=== PATIENT | female | born 1970 | race American Indian/Alaskan Native ===

== ENCOUNTER 2016-09-05 16:01 | Emergency (ER) | payer OTHER, BC ==
[2016-09-05 16:18] VITALS: BP 131/75; PULSE 72; RESP 20; TEMP 98.4; O2SAT 98
--- NOTE | 2016-09-05 16:44 | C.PDOC ---
History Of Present Illness 46 y.o female brought in by EMS for evaluation of head injury. Patient reports she was [employer] when a box full of metal poles tipped over and struck her left side of the head and left shoulder. She reports feeling dizzy, ringing to left ear and headache after box struck her head. She also reports feeling pain to left shoulder and tingling sensation. Denies LOC, extremity weakness, numbness, visual changes, nausea, vomiting. Time Seen by Provider: 09/05/16 16:13 Chief Complaint (Nursing): Headache History Per: Patient History/Exam Limitations: no limitations Onset/Duration Of Symptoms: Mins (just prior to arrival) Patient States: Struck With Object Severity: Mild Pain Scale Rating Of: 3 Loss Of Consciousness: No Recent travel outside of the [place]: No Past Medical History Reviewed: Historical Data, Nursing Documentation, Vital Signs Vital Signs: Last Vital Signs Temp 98.4 F 09/05/16 16:15 Pulse 72 09/05/16 16:15 Resp 20 09/05/16 16:15 BP 131/75 09/05/16 16:15 Pulse Ox 98 09/05/16 18:55 - Medical History PMH: No Chronic Diseases Surgical History: Family History: States: Unknown Family Hx - Social History Hx Alcohol Use: No Hx Substance Use: No - Immunization History Hx Tetanus Toxoid Vaccination: No Hx Influenza Vaccination: No Hx Pneumococcal Vaccination: No Review Of Systems Except As Marked, All Systems Reviewed And Found Negative. Constitutional: Positive for: Other (head injury) Eyes: Negative for: Vision Change ENT: Positive for: Other (ringing sensation in the left ear) Gastrointestinal: Negative for: Nausea, Vomiting Musculoskeletal: Positive for: Shoulder Pain (left) Neurological: Positive for: Headache, Dizziness. Negative for: Weakness, Numbness, Other (loss of consciousness) Physical Exam - Physical Exam Appears: Non-toxic, No Acute Distress Skin: Warm, Dry Head: Normacephalic, No Tenderness, No Swelling, No Abrasion, No Laceration, Other ((-) palpable hematoma, (-)scalp laceration or abrasion (-)facial hematoma ) Eye(s): bilateral: Normal Inspection, EOMI Ear(s): Bilateral: Normal Nose: Normal Oral Mucosa: Moist Throat: Normal Neck: Normal ROM, Supple Chest: Symmetrical Cardiovascular: Rhythm Regular Respiratory: Normal Breath Sounds, No Rales, No Rhonchi, No Wheezing Back: Normal Inspection, No CVA Tenderness Extremity: Normal ROM, Capillary Refill, No Deformity, No Swelling, Other (left shoulder tenderness to the anterior area with normal ROM and normal strength) Neurological/Psych: Oriented x3, Normal Speech Gait: Steady ED Course And Treatment O2 Sat by Pulse Oximetry: 98 (room air) Pulse Ox Interpretation: Normal - CT Scan/US head Other Rad Studies (CT/US): Read By Radiologist, Radiology Report Reviewed CT/US Interpretation: Creator : Lance Contreras MD. Dictator : Lance Contreras MD. Dust Operator : Organ Assembler : Lance Contreras MD. Approver2 : Report Date : 09/05/2016 17:35:06. My Comment : . PROCEDURE: CT HEAD WITHOUT CONTRAST. HISTORY: left side headache s.p injury, struck by object. COMPARISON: None available. TECHNIQUE: Axial computed tomography images were obtained through the head/brain without intravenous contrast. Radiation dose: Total exam DLP = 913 mGy-cm. This CT exam was performed using one or more of the following dose reduction techniques: Automated exposure control, adjustment of the mA and/or kV according to patient size, and/or use of iterative reconstruction technique. FINDINGS: HEMORRHAGE: No intracranial hemorrhage. BRAIN: No mass effect or edema. No atrophy or chronic microvascular ischemic changes. VENTRICLES: Unremarkable. No hydrocephalus. CALVARIUM: Unremarkable. PARANASAL SINUSES: Unremarkable as visualized. No significant inflammatory changes. MASTOID AIR CELLS: Unremarkable as visualized. No inflammatory changes. OTHER FINDINGS: None. IMPRESSION: Normal CT of the Head. Medical Decision Making Medical Decision Making: Impression: 46 y.o female with head injury. Normal neurological exam. Plan: * Head CT * Shoulder xray * Ibuprofen, Flexeril Progress: Shoulder Xray shgow no acute fracture, dislocation or abnormality CT head :Normal CT of the Head. Patient continued to have pain to head and shoulder. Tramadol PO was ordered Patient remained alert and oriented with no neuro deficits. I explained all results to patient. recommend Motrin or tylenol for any pain. Disposition Counseled Patient/Family Regarding: Diagnosis, Need For Followup, Rx Given - Disposition Referrals: Albino Clayton MD [Staff Provider] - Disposition: HOME/ ROUTINE Disposition Time: 18:13 Condition: STABLE Additional Instructions: Your head CT and Xray were normal take pain medication as needed follow up with your primary physician Prescriptions: traMADol [Ultram] 50 mg PO Q8 #10 tab Instructions: Head Injury (ED) - POA Present On Arrival: None - Clinical Impression Clinical Impression: Head contusion - PA / TECHNICAL TRAINER / Resident Statement MD/DO has reviewed & agrees with the documentation as recorded. - Scribe Statement The provider has reviewed the documentation as recorded by the Scribe Cynthia Betancourt All medical record entries made by the Scribe were at my direction and personally dictated by me. I have reviewed the chart and agree that the record accurately reflects my personal performance of the history, physical exam, medical decision making, and the department course for this patient. I have also personally directed, reviewed, and agree with the discharge instructions and disposition.
--- NOTE | 2016-09-05 17:37 | CT ---
PROCEDURE: CT HEAD WITHOUT CONTRAST. HISTORY: left side headache s.p injury, struck by object COMPARISON: None available. TECHNIQUE: Axial computed tomography images were obtained through the head/brain without intravenous contrast. Radiation dose: Total exam DLP = 913 mGy-cm. This CT exam was performed using one or more of the following dose reduction techniques: Automated exposure control, adjustment of the mA and/or kV according to patient size, and/or use of iterative reconstruction technique. FINDINGS: HEMORRHAGE: No intracranial hemorrhage. BRAIN: No mass effect or edema. No atrophy or chronic microvascular ischemic changes. VENTRICLES: Unremarkable. No hydrocephalus. CALVARIUM: Unremarkable. PARANASAL SINUSES: Unremarkable as visualized. No significant inflammatory changes. MASTOID AIR CELLS: Unremarkable as visualized. No inflammatory changes. OTHER FINDINGS: None. IMPRESSION: Normal CT of the Head.
--- NOTE | 2016-09-06 08:31 | RAD ---
PROCEDURE: Radiographs of the Left Shoulder HISTORY: pain s.p injury, struck by object COMPARISON: No prior. FINDINGS: BONES: Normal. No fracture. JOINTS: Normal. Glenohumeral and acromioclavicular joints preserved. No osteoarthritis. SOFT TISSUES: Normal. OTHER FINDINGS: None. IMPRESSION: No evidence of acute fracture or dislocation.
== END 2016-09-05 18:13 | disposition home or self-care (01) ==
LOC: C.ER 16:01
DX: S00.83XA Contusion of other part of head, initial encounter (principal); W20.8XXA Other cause of strike by thrown, projected or falling object, initial encounter; Y93.89 Activity, other specified; Y92.512 Supermarket, store or market as the place of occurrence of the external cause